=== PATIENT | male | born 2000 | race Caucasian/White ===

== ENCOUNTER 2022-02-20 15:51 | Emergency (ER) | payer MEDICAID, SELFPAY ==
--- NOTE | 2022-02-20 16:00 | DI.RAD_ITS ---
Exam(s) XR PORTABLE CHEST AP EXAM: XR PORTABLE CHEST AP CLINICAL HISTORY: PUI, Fever Cough. TECHNIQUE: 2D digital imaging was performed. COMPARISON: No exams were available for comparison FINDINGS: Single AP portable view. Heart size is upper normal. The mediastinum is not widened. Lungs are clear. No infiltrates nor obvious pleural effusions. IMPRESSION: No acute pulmonary findings on this single AP portable view of the chest. DATA REPOSITORY: RADIATION DOSE DELIVERED: All CT scans at this facility use at least one of these dose optimization techniques: automated exposure control; mA and/or kV adjustment per patient size (includes targeted e xams where dose is matched to clinical indication); or iterative reconstruction.
[2022-02-20 16:04] VITALS: BP 131/77; PULSE 94; RESP 16; TEMP 37.4; O2SAT 96
--- NOTE | 2022-02-20 16:12 | W.ED.GENAD ---
Discharge Plan Disposition Patient Disposition: HOME Condition: Stable Discharge Details Clinical Impression: COVID-19 Primary Care Provider: None,None ED Provider: Kaylee Santana Home Meds and New Rx's Prescriptions: No Action No Known Home Meds Discharge Instructions Instructions: COVID-19 (Coronavirus Disease 2019) (ED) Additional Instructions: At this time you are positive for COVID-19. This can explain the symptoms. Take the nausea medications up to 3 times daily as needed for nausea and vomiting. Take [id number] vitamin including zinc, vitamin D3 and vitamin C. Please take Tylenol or Ibuprofen with food every 4-6 hours as needed for pain and swelling. Follow up with primary care provider in 3-5 days. Return to ED sooner if any worsening or concerns. Increase oral fluids. Please continue to quarantine and wear a mask for the next 7 to 10 days. Stand Alone Forms: Work Release Referrals: Jessica Hays RN [Emergency Nurse] - 1 week Medical Decision Making 21 year old male presents with c/o fever T-max 104 for the last 2 to 3 days. He reports he had mild emesis last night and a headache. He also endorses a scratchy throat and cough. Reports this time was recently ill with a viral URI a week ago who tested negative for COVID. He has been vaccinated for COVID. He denies any diarrhea or problems urinating. Denies any abdominal pain. He does have a history of a right shoulder surgery. He did take Tylenol earlier today. Work-up ordered including CBC, CMP, lipase normal saline 1 L Zofran 4 mg IV, COVID and rapid strep swab. CBC shows no leukocytosis, absolute lymphocytes 0.72, monocytes 1.3, BUN 21 creatinine 1.4 GFR greater than 60. Urine was canceled due to lab error. Patient is positive for COVID-19. Discussed results with patient who verbalized understanding. Discussed quarantine procedures and home care. Discussed tricked return instructions. Patient hemodynamically stable alert and oriented throughout the remainder of stay. This text was generated using [employer] system, please disregard any oddities of phrase or misspellings. HPI General Mode of arrival: ambulatory. Date/Time Provider Initiated Documentation: 02/20/22 16:05. Limitations to Documentation: no limitations. Information obtained by: patient, RN notes reviewed and old records reviewed. HPI Narrative: 21 year old male presents with c/o fever T-max 104 for the last 2 to 3 days. He reports he had mild emesis last night and a headache. He also endorses a scratchy throat and cough. Reports this time was recently ill with a viral URI a week ago who tested negative for COVID. He has been vaccinated for COVID. He denies any diarrhea or problems urinating. Denies any abdominal pain. He does have a history of a right shoulder surgery. He did take Tylenol earlier today. Related Data Home Medications Medication Instructions Recorded Confirmed Unknown [No Known Home Meds] 02/20/22 02/20/22 Allergies Allergy/AdvReac Type Severity Reaction Status Date / Time amoxicillin Allergy Unverified 02/20/22 16:17 morphine Allergy Unverified 02/20/22 16:18 General Stated Complaint: Nausea/Vomit/Diar MANJEET: 3 Review of Systems All systems reviewed & are unremarkable except as noted in HPI and below Constitutional Constitutional: Reports chills, Reports fever(s) and Reports headache(s) ENT Ears, Nose, Mouth, and Throat: Reports headache(s) Cardiovascular Cardiovascular: Denies chest pain Respiratory Respiratory: Reports cough Gastrointestinal Gastrointestinal: Denies abdominal pain, Denies diarrhea, Reports nausea and Reports vomiting Neurologic Neurologic: Reports headache(s) PFSH All Active Problems (Updated 02/20/22 @ 18:03 by Kaylee Santana) COVID-19 (Acute) Social History Smoking/Tobacco Use Status: Current every day Tobacco Type: cigarettes Smoking risk assessment performed?: Yes Substance use type: does not use Exam Narrative Exam Narrative: Constitutional: Alert and oriented x3. Appears stated age. Normal body habitus. Head: Normocephalic, no trauma. Eyes: Pupils PERRL, Red reflex noted, EOM's intact. Eyelids symmetrical without lesions, discharge, or swelling. ENT: Bilateral TM's WNL, External ear normal to inspection, no mastoid TTP, swelling, or erythema, Nasal turbinates WNL, no nasal discharge. Normal dentition, Posterior pharynx erythemic, tonsils 2+ bilaterally, no exudate. Chest: RRR, Normal S1, S2, distal pulses intact. Resp: Lungs clear to auscultation bilaterally, no wheezes, rales, or rhonchi. Abdomen: Soft, non-distended, Normoactive bowel sounds all 4 quads. Nontender to palpation all 4 quadrants. Musculoskeletal: Normal gait, 5/5 strength to all four extremities. Skin: No suspicious rashes or lesions. Capillary refill less than 2 sec. Neurologic: Cranial nerves II-XII intact. Alert and oriented x 3. Motor: No deficits noted. Sensory: Intact bilaterally all 4 extremities. Hematologic/Lymphatic: No ecchymosis, no lymphadenopathy. Course Vital Signs Vital signs: Vital Signs Temperature 37.4 C 02/20/22 16:04 Pulse 94 H 02/20/22 16:04 Respiratory Rate 16 02/20/22 16:04 Blood Pressure 131/77 02/20/22 16:04 Pulse Oximetry 96 02/20/22 16:04 Temperature 37.4 C 02/20/22 16:04 Temperature Source Oral 02/20/22 16:04 Pulse 94 H 02/20/22 16:04 Respiratory Rate 16 02/20/22 16:04 Respiratory Effort 02/20/22 16:04 Blood Pressure 131/77 02/20/22 16:04 Blood Pressure Position Sitting 02/20/22 16:04 Pulse Oximetry 96 02/20/22 16:04 Oxygen Delivery Method Room Air 02/20/22 16:04 Oxygen Flow Rate 0 02/20/22 16:04
[2022-02-20] MEDS: Normal Saline 1,000 ML 1000 ML IV (16:39)
[2022-02-20] MEDS: Ondansetron 4 MG/2 ML VIAL IVP (16:39)
[2022-02-20 16:43] LABS: Source Nasal/Nares
[2022-02-20 16:47] LABS: Abs Immature Grans 0.02 10^3/uL (0.0-0.06); Absolute Basophil Count 0.02 10^3/uL (0.0-0.2); Absolute Eosinophil Count 0.02 10^3/uL (0.0-0.7); Absolute Lymphocyte Count 0.72 10^3/uL (1.2-3.4); Absolute Monocyte Count 1.23 10^3/uL (0.1-0.8); Absolute Neutrophil Count 3.12 10^3/uL (1.2-6.7); Basophils % 0.4; Eosinophils % 0.4; HCT 41.9 % (40.0-50.0); Immature Grans % 0.4; MCH 29.9 pg (27.0-33.0); MCHC 33.4 % (32.0-36.0); MCV 90 fL (80-95); Neutrophils % 60.8; Platelet Count 135 10^3/uL (130-400); RBC 4.68 10^6/uL (4.36-5.78); RDW 12.9 % (11.8-14.1); RDW-SD 42.4 fL; WBC 5.13 10^3/uL (4.4-10.8)
[2022-02-20 17:05] LABS: ALT 17 U/L (16-63); AST 9 U/L (15-37); Alkaline Phosphatase 63 U/L (46-116); BUN 21 mg/dL (7-18); Bilirubin, Total 0.7 mg/dL (0.2-1.0); CREATININE 1.4 mg/dL (0.70-1.30); Calcium 8.6 mg/dL (8.5-10.1); Chloride 105 mmol/L (98-107); Glucose 103 mg/dL (74-106); Lipase 64 U/L (73-393); Magnesium 2.3 mg/dL (1.8-2.4); Potassium 3.8 mmol/L (3.5-5.1); Sodium 140 mmol/L (136-145); Total Protein 7.2 g/dL (6.4-8.2)
[2022-02-20 17:30] LABS: COVID-19 PCR POSITIVE (Negative)
[2022-02-20 18:15] VITALS: BP 121/91; PULSE 97; RESP 16; O2SAT 97
--- NOTE | 2022-02-20 18:32 | DI.VRAD_ITS ---
PROCEDURE INFORMATION: Exam: XR Chest Exam date and time: 02/20/2022 17:19 Age: 21 years old Clinical indication: Cough and fever and other: Covid+ TECHNIQUE: Imaging protocol: XR of the chest. Views: 1 view. COMPARISON: No relevant prior studies available. FINDINGS: Lungs: No consolidation. Pleural spaces: No pleural effusion. No pneumothorax. Heart/Mediastinum: No cardiomegaly. Bones/joints: No acute fracture. IMPRESSION: Negative portable chest. Dictated and Authenticated by: Smitha Reece MD. Ordering:NATY Page MD
== END 2022-02-20 18:25 | disposition home or self-care (01) ==
PROVIDERS: Emergency Provider Registered Nurse Emergency
DX: U07.1 COVID-19 (principal); R50.9 Fever, unspecified
CPT/HCPCS: 36415; 80053; 83690; 87635; 87880; 96361; 96374; 99283; 99284; 71045; 81003; 83735; 85025; 87081; J2405

== ENCOUNTER 2024-04-30 06:16 | Emergency (ER) | payer MEDICAID, SELFPAY ==
[2024-04-30 06:24] VITALS: BP 139/118; PULSE 84; RESP 16; TEMP 37.1; O2SAT 98
--- NOTE | 2024-04-30 06:32 | ED.GENADUL_ITS ---
Discharge Plan Disposition Patient Disposition: Home Condition: Good Discharge Details Clinical Impression: Dermatitis Primary Care Provider: None,None ED Provider: Yulissa Faria Home Meds and New Rx's Prescriptions: New prednisone 10 mg tablet 10 mg PO DIRECTED Qty: 60 0RF Rx Instructions: taper instructions: 6 tablets a day for the first three days Then 5 tablets a day on days 4-6 Then 4 tablests a day on days 7-9 Then 3 tablets a day on days 10-12 Then 2 tablets a day on days 13-15 Discharge Instructions Instructions: Skin Rash ED Additional Instructions: Continue taking benadryl over the counter at home; follow the directions on the bottle. Prednisone taper: Take 6 10mg tablets a day for the first three days Then 5 tablets a day on days 4-6 Then 4 tablets a day on days 7-9 Then 3 tablets a day on days 10-12 Then 2 tablets a day on days 13-15 Establish care with a primary care doctor and schedule an appointment to follow up with them. Return to the emergency department for new or worsening symptoms including fever, worsening skin break down, nasuea/body aches, or if you have any other concerns. HPI General Mode of arrival: ambulatory . Date/Time Provider Initiated Documentation: 04/30/24 06:21 . Limitations to Documentation: no limitations . Information obtained by: patient . HPI Narrative: 23yo previously healthy M presenting for 4 days of worsening LE rash. Rash started near both knees and has spread to shins and both feet. Itchy. Over the past two days has developed blisters some of which are oozing. Symptoms improve somewhat with benadryl, minimal improvement with OTC steroid creams. No history of similar rash. Cannot recall any provoking factors; poison brian/sumac, new detergents, etc. Systemically well with no fevers, chills, nausea, vomiting, cough, rhinnorhea, chest pain, shortness of breath, body aches, urinary symptoms, or rash elsewhere. Related Data Home Medications ?Medication ?Instructions ?Recorded ?Confirmed prednisone 10 mg tablet 10 mg PO DIRECTED #60 tabs 04/30/24 Previous Rx's ?Medication ?Instructions ?Recorded prednisone 10 mg tablet 10 mg PO DIRECTED #60 tabs 04/30/24 Allergies Allergy/AdvReac Type Severity Reaction Status Date / Time amoxicillin Allergy Unknown Unverified 04/30/24 06:29 morphine Allergy Hives Unverified 04/30/24 06:29 General Stated Complaint: RashLesion MANJEET: 4 Review of Systems Narrative: see HPI Exam Narrative Exam Narrative: General: Alert, well appearing, well nourished, in no acute distress. Head: Normocephalic, atraumatic Neck: Trachea midline, ?Neck supple. ENT: ?MMM.? No oropharygeal lesions or exudate. Cardiac: ?RRR, no murmurs appreciated Resp: No respiratory distress. CTAB. Abd: ?Non-distended Extremities: ?No deformities.? Bilateral lower extremities with scattered erythema and vesicles, some oozing. Worst on left foot between 1st & 2nd and 2nd and 3rd digits with significant oozing and some skin breakdown. No pettechia. Neurologic: GCS 15. ? Moves all extremities freely against gravity Course Vital Signs Vital signs: Vital Signs Temperature 37.1 C 04/30/24 06:24 Pulse 84 04/30/24 06:24 Respiratory Rate 16 04/30/24 06:24 Blood Pressure 139/118 H 04/30/24 06:24 Pulse Oximetry 98 04/30/24 06:24 Temperature 37.1 C 04/30/24 06:24 Temperature Source Temporal Artery Scan 04/30/24 06:24 Pulse 84 04/30/24 06:24 Respiratory Rate 16 04/30/24 06:24 Respiratory Effort Normal, Non-Labored 04/30/24 06:27 Blood Pressure 139/118 H 04/30/24 06:24 Blood Pressure Position Sitting 04/30/24 06:24 Pulse Oximetry 98 04/30/24 06:24 Oxygen Delivery Method Room Air 04/30/24 06:24 Oxygen Flow Rate 0 04/30/24 06:24 Medical Decision Making 23yo previously healthy M presenting for 4 days of worsening purirtic LE rash now with weeping vesicles. Systemically well. Vital signs reassuring on arrival, on exam he has a rash consistent with contact dermatitis. Not suggestive of shingles, chicken pox, monkey pox, viral x[place], SJS, TEN, DIC, or other life threatening pathology. No indication for labs or imaging. Will treat with prednisone taper. Referred to establish primary care. Discharge instructions and return precautions were reviewed with patient who verbalized understanding. All questions were answered and he is in full agreement with the plan. Quality:SDOH Health Related Social Needs: No Data to Display PFSH All Active Problems (Updated 04/30/24 @ 06:48 by Yulissa Faria MD) Dermatitis (Acute) COVID-19 (Acute) Social History Smoking/Tobacco Use Status: Current every day Tobacco Type: e-cigarettes Smoking risk assessment performed?: Yes Alcohol Intake: current Alcohol Intake frequency: holidays/special occasions only Alcohol type: beer Drug use: Daily Substance use type: marijuana Housing: apartment Do you feel safe at home: Yes Do you feel safe in your relationship?: Yes
[2024-04-30] MEDS: predniSONE 20 MG TAB 60 MG PO (06:50)
--- NOTE | 2024-04-30 07:05 | NUR.NOTE ---
Referral given to Care managers to assist Pt in locating a Primary Care Provider for establishing care and follow up to contact dermatitis.
== END 2024-04-30 07:58 | disposition home or self-care (01) ==
LOC: ER 07:52
PROVIDERS: Emergency Provider Student in an Organized Health Care Education/Training Program
DX: R21 Rash and other nonspecific skin eruption (principal); L24.9 Irritant contact dermatitis, unspecified cause
CPT/HCPCS: 99283; J7512

== ENCOUNTER 2024-05-01 20:10 | Emergency (ER) | payer MEDICAID, SELFPAY ==
[2024-05-01 20:14] VITALS: BP 136/83; PULSE 100; RESP 16; TEMP 36.6; O2SAT 98
--- NOTE | 2024-05-01 20:27 | ED.GENADUL_ITS ---
Discharge Plan Disposition Patient Disposition: Home Condition: Stable Discharge Details Clinical Impression: Rash Primary Care Provider: None,None ED Provider: Navjot Strong Home Meds and New Rx's Prescriptions: New clindamycin HCl 150 mg capsule 450 mg PO TID 7 Days Qty: 63 0RF Continued prednisone 10 mg tablet 10 mg PO DIRECTED Qty: 60 0RF Rx Instructions: taper instructions: 6 tablets a day for the first three days Then 5 tablets a day on days 4-6 Then 4 tablests a day on days 7-9 Then 3 tablets a day on days 10-12 Then 2 tablets a day on days 13-15 Discharge Instructions Additional Instructions: If not better within a week follow-up with your primary care provider Use the mupirocin ointment 3 times a day for 5 days or until the tube is gone If, ill or develop new symptoms such as high fevers return to the emergency department for reevaluation Stand Alone Forms: Work Release HPI General Mode of arrival: ambulatory . Date/Time Provider Initiated Documentation: 05/01/24 20:15 . Limitations to Documentation: no limitations . Information obtained by: patient . History of Present Illness 23 year old M presents to the emergency department with the chief complaint of rash on feet, described as moderate, Quality is described as aching, Patient reports no radiation. Patient started experiencing this day(s) (3) and it has been constant. No relieving factors improve symptom(s), No exacerbating factors reported . Patient notes no other symptoms.. Patient did receive the following treatments prior to arrival, none Related Data Home Medications ?Medication ?Instructions ?Recorded ?Confirmed prednisone 10 mg tablet 10 mg PO DIRECTED #60 tabs 04/30/24 05/01/24 clindamycin HCl 150 mg capsule 450 mg (3 x 150 mg) PO TID 7 days 05/01/24 #63 caps Previous Rx's ?Medication ?Instructions ?Recorded prednisone 10 mg tablet 10 mg PO DIRECTED #60 tabs 04/30/24 clindamycin HCl 150 mg capsule 450 mg (3 x 150 mg) PO TID 7 days 05/01/24 #63 caps Allergies Allergy/AdvReac Type Severity Reaction Status Date / Time amoxicillin Allergy Unknown Verified 05/01/24 20:17 morphine Allergy Hives Verified 05/01/24 20:17 General Stated Complaint: RashLesion MANEJET: 5 Review of Systems All systems reviewed & are unremarkable except as noted in HPI and below Constitutional Constitutional: Denies chills, Denies fever(s) and Denies weakness Cardiovascular Cardiovascular: Denies chest pain and Denies dyspnea Respiratory Respiratory: Denies dyspnea Gastrointestinal Gastrointestinal: Denies abdominal pain and Denies vomiting Integumentary/Breasts Skin/Breast: Reports rash Neurologic Neurologic: Denies weakness Exam Const General: no acute distress Orientation: alert HENMT Head: normal to inspection Ears: external ears normal General nose exam: external nose normal Mouth: moist mucous membranes Eyes General: appearance normal, both eyes and all related structures Neck Neck: normal visual inspection Resp Effort & Inspection: normal respiratory effort and able to speak in complete sentences Cardio Rate: regular rate Skin Rashes: rashes noted Neuro General: patient alert and patient oriented x3 Extrem General: full ROM and capillary refill normal Psych Mental Status: mental status grossly normal Course Vital Signs Vital signs: Vital Signs Temperature 36.6 C 05/01/24 20:14 Pulse 100 H 05/01/24 20:14 Respiratory Rate 16 05/01/24 20:14 Blood Pressure 136/83 05/01/24 20:14 Pulse Oximetry 98 05/01/24 20:14 Temperature 36.6 C 05/01/24 20:14 Temperature Source Temporal Artery Scan 05/01/24 20:14 Pulse 100 H 05/01/24 20:14 Respiratory Rate 16 05/01/24 20:14 Respiratory Effort Normal 05/01/24 20:18 Blood Pressure 136/83 05/01/24 20:14 Pulse Oximetry 98 05/01/24 20:14 Oxygen Delivery Method Room Air 05/01/24 20:14 Oxygen Flow Rate 0 05/01/24 20:14 Pain Level 7 05/01/24 20:14 Medical Decision Making 23-year-old male with no chronic medical problems comes in with continued rash on his feet. He was seen on the and placed on prednisone for dermatitis. Despite this he has not had significant improvement so came here. He denies any fevers or severe pain. He has erythema patches on his lower extremities of the feet, he is also noted to have nonbullous erythematous maculopapules that appear to be of developed in the pustules. There are no satellite lesions. He has full range of motion of the foot and intact sensation. I suspect he does have dermatitis but also now with the appearance of impetigo. Will have him continue prednisone and also add mupirocin and clindamycin. He is stable for discharge and return precautions given Differential Diagnosis Differential Diagnosis: Rash, impetigo, poison brian Medical Records Medical records reviewed: Yes I reviewed the patient's medical records. Quality:SDOH Health Related Social Needs: No Data to Display PFSH All Active Problems (Updated 05/01/24 @ 20:32 by Navjot Strong MD) Rash (Acute) Dermatitis (Acute) COVID-19 (Acute) Social History Smoking/Tobacco Use Status: Current every day Tobacco Type: e-cigarettes Smoking risk assessment performed?: Yes Alcohol Intake: current Alcohol Intake frequency: holidays/special occasions only Alcohol type: beer Drug use: Daily Substance use type: marijuana Housing: apartment Do you feel safe at home: Yes Do you feel safe in your relationship?: Yes
[2024-05-01] MEDS: Clindamycin 150 MG CAP 450 MG PO (20:33)
[2024-05-01] MEDS: Mupirocin 2% Oint. 22 GM TUBE TP (20:33)
--- NOTE | 2024-05-02 15:22 | NUR.NOTE ---
Nursing Note:Pt came in today to ask for the provider that he saw last night to fill out a restrictions note d/t the original doctors note not having any specific restrictions noted. The form with the patients name, date of , and phone number put in Dr. Conteh box for him to sign tomorrow.
--- NOTE | 2024-05-03 07:27 | NUR.NOTE ---
Accessed chart to get a information for a work note written. Nursing Note:
== END 2024-05-01 20:37 | disposition home or self-care (01) ==
LOC: ER 20:42
PROVIDERS: Emergency Provider Emergency Medicine
DX: R21 Rash and other nonspecific skin eruption (principal); F17.210 Nicotine dependence, cigarettes, uncomplicated
CPT/HCPCS: 99283

== ENCOUNTER 2024-07-06 08:09 | Emergency (ER) | payer MEDICAID, SELFPAY ==
[2024-07-06 08:12] VITALS: BP 156/86; PULSE 86; RESP 10; TEMP 36.3; O2SAT 100
--- NOTE | 2024-07-06 08:15 | DI.RAD_ITS ---
Exam(s) XR THUMB LT EXAM: XR THUMB LT CLINICAL HISTORY: eval for fb, glass. TECHNIQUE: 2D digital imaging was performed of the left thumb. Three views were obtained. AP, late ral and oblique views were obtained. COMPARISON: No exams were available for comparison FINDINGS: BONES: No acute fracture is present. No bony destructive lesion is seen. JOINTS: No dislocation present. SOFT TISSUE: No radiopaque foreign body is identified. IMPRESSION: No radiopaque foreign body is identified. DATA REPOSITORY: RADIATION DOSE DELIVERED:
[2024-07-06] MEDS: Lidocaine 1% Multi-Dose 50 ML VIAL IJ (08:47)
--- NOTE | 2024-07-06 09:07 | W.ED.GENAD ---
Discharge Plan Disposition Patient Disposition: Home Discharge Details Clinical Impression: Laceration of thumb Primary Care Provider: None,None ED Provider: Yuridia Carbajal Discharge Instructions Instructions: Laceration Repair With [facility] ED Additional Instructions: change daily and apply bacitracin Refrain from bending your thumb, you may wrap Do not submerge in water until sutures are removed in 12 days Return for spreading redness, fever, worsening pain Please try to keep from bending your thumb is much as possible as that will delay healing HPI General Date/Time Provider Initiated Documentation: 07/06/24 08:16. HPI Narrative: This 24-year-old male report of injury to left thumb after a glass broke. He denies any additional injuries. Unsure regarding his tetanus. Able to flex and extend without difficulty. Related Data Allergies Allergy/AdvReac Type Severity Reaction Status Date / Time amoxicillin Allergy Unknown Verified 07/06/24 08:11 morphine Allergy Hives Verified 07/06/24 08:11 General Stated Complaint: Laceration MANJEET: 4 Exam Narrative Exam Narrative: Alert and oriented gentleman, approximately half inch laceration noted to left MCP joint of thumb. Neurovascularly intact. Range of motion and strength intact Course Vital Signs Vital signs: Vital Signs Temperature 36.3 C L 07/06/24 08:12 Pulse 86 07/06/24 08:12 Respiratory Rate 10 L 07/06/24 08:12 Blood Pressure 156/86 H 07/06/24 08:12 Pulse Oximetry 100 07/06/24 08:12 Temperature 36.3 C L 07/06/24 08:12 Temperature Source Temporal Artery Scan 07/06/24 08:12 Pulse 86 07/06/24 08:12 Respiratory Rate 10 L 07/06/24 08:12 Respiratory Effort Normal, Non-Labored 07/06/24 08:14 Blood Pressure 156/86 H 07/06/24 08:12 Blood Pressure Position Sitting 07/06/24 08:12 Pulse Oximetry 100 07/06/24 08:12 Oxygen Delivery Method Room Air 07/06/24 08:12 Oxygen Flow Rate 0 07/06/24 08:12 Pain Level 0 07/06/24 08:12 Procedures Laceration Laceration 1: Site: hand Side (If applicable): left Size (cm): 1.25 Description: linear Depth: simple, single layer Amount of anesthesia used (mL): 2 Pre-repair: wound explored and irrigated extensively Skin layer closed with: other (prolene) Size (cm): 5-0 Number of sutures: 3 Technique: other (2 vertical mattress, 1 horizontal mattress) Medical Decision Making 24-year-old male in no acute distress, 2 vertical mattress and 1 horizontal mattress suture placed. Strength, sensation and cap refill intact. Bulky dressing applied suture removal in 12 to 14 days. Return precautions discussed and patient expressed understanding Quality:SDOH Health Related Social Needs: No Data to Display PFSH All Active Problems (Updated 07/06/24 @ 09:01 by JERRELL Queen) Laceration of thumb (Acute) COVID-19 (Acute) Social History Smoking/Tobacco Use Status: Current every day Tobacco Type: e-cigarettes Smoking risk assessment performed?: Yes Alcohol Intake: current Alcohol Intake frequency: holidays/special occasions only Alcohol type: beer Drug use: Daily Substance use type: marijuana Housing: apartment Do you feel safe at home: Yes Do you feel safe in your relationship?: Yes
--- NOTE | 2024-07-09 07:55 | NUR.NOTE ---
Accessed Pt chart due to Pt requesting a return to work note. The note was completed noting bending restrictions of the thumb and to not submerge in water until sutures removed.
== END 2024-07-06 09:08 | disposition home or self-care (01) ==
PROVIDERS: Emergency Provider Physician Assistant
DX: W25.XXXA Contact with sharp glass, initial encounter; S61.012A Laceration without foreign body of left thumb without damage to nail, initial encounter
CPT/HCPCS: 12001; 90471; 90715; 99283; 73140

== ENCOUNTER 2024-07-11 13:58 | Emergency (ER) | payer MEDICAID, SELFPAY ==
[2024-07-11 14:02] VITALS: BP 129/83; PULSE 85; RESP 16; TEMP 36.4; O2SAT 98
--- NOTE | 2024-07-11 14:10 | ED.GENADUL_ITS ---
Discharge Plan Disposition Patient Disposition: Home Condition: Stable Discharge Details Clinical Impression: Encounter for re-check of laceration wound Primary Care Provider: None,None ED Provider: Kaylee Santana Home Meds and New Rx's Prescriptions: No Action No Known Home Meds Discharge Instructions Instructions: Stitches and daryl Additional Instructions: Wear the thumb spica splint as needed for comfort. Rest ice elevate when sitting or lying down. Please take Tylenol or Ibuprofen with food every 4-6 hours as needed for pain and swelling. Return sooner for any worsening pain, red streaks, swelling or signs of infection. Have sutures removed as previously instructed. They probably need to be in for at least 4 more days. Stand Alone Forms: Work Release HPI General Mode of arrival: ambulatory . Date/Time Provider Initiated Documentation: 07/11/24 13:59 . Limitations to Documentation: no limitations . Information obtained by: patient, RN notes reviewed and old records reviewed . HPI Narrative: 24 year old male presents with thumb pain after having sutures placed 5 days ago. Patient was seen here and had 2 vertical mattress sutures in a horizontal mattress suture placed to the dorsal aspect of his left thumb. He reports pain with thumb movement and grabbing items while at work. He reports he has had to call out of work twice. There is a small amount of surrounding erythema however no induration red streaks drainage or signs of infection. Related Data Home Medications ?Medication ?Instructions ?Recorded ?Confirmed Unknown [No Known Home Meds] 07/11/24 07/11/24 Allergies Allergy/AdvReac Type Severity Reaction Status Date / Time amoxicillin Allergy Unknown Verified 07/11/24 14:06 morphine Allergy Hives Verified 07/11/24 14:06 General Stated Complaint: Recheck MANJEET: 4 Review of Systems All systems reviewed & are unremarkable except as noted in HPI and below Musculoskeletal Musculoskeletal: Reports as per HPI and Reports arthralgias Integumentary/Breasts Skin/Breast: Reports as per HPI Exam Extrem Left upper extremity: hand Details: laceration (Dorsal aspect left thumb); no unusual warmth Hand/finger images: 2 1. Well-approximated laceration noted with sutures in place. No signs of induration red streaks or drainage noted. Course Vital Signs Vital signs: Vital Signs Temperature 36.4 C 07/11/24 14:02 Pulse 85 07/11/24 14:02 Respiratory Rate 16 07/11/24 14:02 Blood Pressure 129/83 07/11/24 14:02 Pulse Oximetry 98 07/11/24 14:02 Temperature 36.4 C 07/11/24 14:02 Pulse 85 07/11/24 14:02 Respiratory Rate 16 07/11/24 14:02 Respiratory Effort Normal 07/11/24 14:06 Blood Pressure 129/83 07/11/24 14:02 Pulse Oximetry 98 07/11/24 14:02 Pain Level 7 07/11/24 14:02 Medical Decision Making 24 year old male presents with thumb pain after having sutures placed 5 days ago. Patient was seen here and had 2 vertical mattress sutures in a horizontal mattress suture placed to the dorsal aspect of his left thumb. He reports pain with thumb movement and grabbing items while at work. He reports he has had to call out of work twice. There is a small amount of surrounding erythema however no induration red streaks drainage or signs of infection. Will place in a thumb spica splint and instructed on RICE procedures Tylenol and ibuprofen. This text was generated using [employer] dictation system, please disregard any oddities of phrase or misspellings. Quality:SDOH Health Related Social Needs: 2 No Data to Display PFSH All Active Problems (Updated 07/11/24 @ 14:14 by Kaylee Santana NP) Encounter for re-check of laceration wound (Acute) Laceration of thumb (Acute) COVID-19 (Acute) Social History Smoking/Tobacco Use Status: Current every day Tobacco Type: e-cigarettes Smoking risk assessment performed?: Yes Alcohol Intake: current Alcohol Intake frequency: holidays/special occasions only Alcohol type: beer Drug use: Daily Substance use type: marijuana Housing: apartment Do you feel safe at home: Yes Do you feel safe in your relationship?: Yes
== END 2024-07-11 14:33 | disposition home or self-care (01) ==
PROVIDERS: Emergency Provider Registered Nurse Emergency
DX: S61.012D Laceration without foreign body of left thumb without damage to nail, subsequent encounter (principal); X58.XXXD Exposure to other specified factors, subsequent encounter; F17.290 Nicotine dependence, other tobacco product, uncomplicated
CPT/HCPCS: 99282

== ENCOUNTER 2024-07-18 16:07 | Emergency (ER) | payer MEDICAID, SELFPAY ==
[2024-07-18 16:09] VITALS: BP 134/52; PULSE 86; RESP 15; TEMP 36.1; O2SAT 98
--- NOTE | 2024-07-18 16:15 | ED.GENADUL_ITS ---
Discharge Plan Disposition Patient Disposition: Home Condition: Stable Discharge Details Chief Complaint: Recheck Clinical Impression: Encounter for removal of sutures Primary Care Provider: None,None ED Provider: Navjot Strong Home Meds and New Rx's Prescriptions: No Action No Known Home Meds Discharge Instructions Additional Instructions: Follow-up with your primary care provider as needed. If you develop any severe worsening pain or spreading redness of the hand return to the emergency department for reevaluation HPI General Mode of arrival: ambulatory . Date/Time Provider Initiated Documentation: 07/18/24 16:09 . Limitations to Documentation: no limitations . Information obtained by: patient . History of Present Illness 24 year old M presents to the emergency department with the chief complaint of Stitch removal left thumb, described as mild, No relieving factors improve symptom(s), No exacerbating factors reported . Patient notes no other symptoms.. Related Data Home Medications ?Medication ?Instructions ?Recorded ?Confirmed Unknown [No Known Home Meds] 07/11/24 07/11/24 Allergies Allergy/AdvReac Type Severity Reaction Status Date / Time amoxicillin Allergy Unknown Verified 07/11/24 14:06 morphine Allergy Hives Verified 07/11/24 14:06 General Stated Complaint: Recheck MANJEET: 5 Review of Systems All systems reviewed & are unremarkable except as noted in HPI and below Constitutional Constitutional: Denies chills, Denies fever(s) and Denies weakness Cardiovascular Cardiovascular: Denies chest pain and Denies dyspnea Respiratory Respiratory: Denies cough and Denies dyspnea Gastrointestinal Gastrointestinal: Denies abdominal pain, Denies nausea and Denies vomiting Integumentary/Breasts Skin/Breast: Denies rash Neurologic Neurologic: Denies weakness Exam Const General: no acute distress Orientation: alert [facility] Head: normal to inspection Ears: external ears normal General nose exam: external nose normal Mouth: moist mucous membranes Eyes General: appearance normal, both eyes and all related structures Neck Neck: normal visual inspection Resp Effort & Inspection: normal respiratory effort and able to speak in complete sentences Cardio Rate: regular rate Skin General skin exam: no rashes or lesions noted Neuro General: patient alert and patient oriented x3 Extrem General: full ROM and capillary refill normal Psych Mental Status: mental status grossly normal Course Vital Signs Vital signs: Vital Signs Temperature 36.1 C L 07/18/24 16:09 Pulse 86 07/18/24 16:09 Respiratory Rate 15 07/18/24 16:09 Blood Pressure 134/52 L 07/18/24 16:09 Pulse Oximetry 98 07/18/24 16:09 Temperature 36.1 C L 07/18/24 16:09 Temperature Source Tympanic 07/18/24 16:09 Pulse 86 07/18/24 16:09 Respiratory Rate 15 07/18/24 16:09 Blood Pressure 134/52 L 07/18/24 16:09 Blood Pressure Position Sitting 07/18/24 16:09 Pulse Oximetry 98 07/18/24 16:09 Oxygen Delivery Method Room Air 07/18/24 16:09 Oxygen Flow Rate 0 07/18/24 16:09 Medical Decision Making Patient here for stitch removal, had stitches placed over a week ago and left posterior base of the thumb. He has no pain or discomfort there. There is 2 remaining stitches, he states that he pulled out the middle stitch because it was causing him discomfort. There is no significant erythema or drainage. Full range of motion of the finger. Wound appears well-healed enough where 2 stitches can be removed, nursing will remove them. Quality:SDOH Health Related Social Needs: No Data to Display PFSH All Active Problems (Updated 07/18/24 @ 16:17 by Navjot Strong MD) Encounter for removal of sutures (Acute) Encounter for re-check of laceration wound (Acute) Laceration of thumb (Acute) COVID-19 (Acute) Social History Smoking/Tobacco Use Status: Current every day Tobacco Type: e-cigarettes Smoking risk assessment performed?: Yes Alcohol Intake: current Alcohol Intake frequency: holidays/special occasions only Alcohol type: beer Drug use: Daily Substance use type: marijuana Housing: apartment Do you feel safe at home: Yes Do you feel safe in your relationship?: Yes
== END 2024-07-18 16:52 | disposition home or self-care (01) ==
LOC: ER 16:22
PROVIDERS: Emergency Provider Emergency Medicine
DX: S61.512D Laceration without foreign body of left wrist, subsequent encounter (principal); X58.XXXD Exposure to other specified factors, subsequent encounter